=== PATIENT | female | born 1970 | race Caucasian/White ===

== ENCOUNTER 2023-03-27 06:21 | Emergency (ER) | payer BC ==
[~2023-03-27] VITALS: Ht 165.1 cm; Wt 88.7 kg
[2023-03-27 08:09] LABS: BASO # 0.1 10^3/uL (0.0-0.2); BASO % 0.6 % (0.0-1.0); EOS % 0.1 % (0.0-3.0); HEMOGLOBIN 14.3 g/dl (12.0-15.5); LYMPH # 1.3 10^3/uL (1.5-5.0); LYMPH % 12.7 % (24.0-44.0); MEAN CORPUSCULAR HEMOGLOBIN 30.4 pg (27.0-33.0); MEAN CORPUSCULAR HGB CONC 32.5 g/dl (32.0-36.5); MEAN CORPUSCULAR VOLUME 93.4 fl (80.0-96.0); MONO # 0.3 10^3/uL (0.0-0.8); MONO % 3.2 % (2.0-8.0); NEUTROPHILS # 8.3 10^3/uL (1.5-8.5); NEUTROPHILS % 83.2 % (36.0-66.0); PLATELET COUNT, AUTOMATED 321 10^3/uL (150-450); RED BLOOD COUNT 4.71 10^6/uL (4.00-5.40)
[2023-03-27 08:37] LABS: LIPASE 37 U/L (12-53)
[2023-03-27 08:39] LABS: CK-MB VALUE MASS < 1.0 NG/ML (<3.6)
[2023-03-27 08:40] LABS: ALKALINE PHOSPHATASE 82 U/L (46-116); ALT/SGPT 37 U/L (7.0-40); AST/SGOT 17 U/L (<34); BILIRUBIN,DIRECT < 0.1 MG/DL (<0.4); BILIRUBIN,TOTAL 0.2 MG/DL (0.3-1.2); BLOOD UREA NITROGEN 10 MG/DL (9-23); CALCIUM LEVEL 9.6 MG/DL (8.5-10.1); CARBON DIOXIDE LEVEL 24 MMOL/L (20-31); CHLORIDE LEVEL 108 MMOL/L (98-107); CPK CREATINE PHOSPHOKINASE 90 U/L (34-145); CREATININE FOR GFR 0.54 MG/DL (0.55-1.30); GLOMERULAR FILTRATION RATE > 60.0 (>51); GLUCOSE, FASTING 133 MG/DL (60-100); MB/CK RELATIVE INDEX 1.11 (< OR =4); POTASSIUM SERUM 4.2 MMOL/L (3.5-5.1); SODIUM LEVEL 141 MMOL/L (136-145); TOTAL PROTEIN 7.6 G/DL (5.7-8.2)
[2023-03-27] MEDS ORDERED: TRAM50TA2 PO (09:19)
[2023-03-27 09:25] VITALS: BP 198/93; TEMP 98.4; O2SAT 99
== END 2023-03-27 09:30 | disposition home or self-care (01) ==
LOC: M ED 06:21
DX: K80.51 Calculus of bile duct without cholangitis or cholecystitis with obstruction (principal)

== ENCOUNTER 2023-05-24 08:08 | Day surgery (SDC) | payer BC ==
[~2023-05-24] VITALS: Ht 165.1 cm; Wt 86.2 kg
[~2023-05-24 08:08] MED LIST: CALC500C16 PO; CelecoXIB 400 MG CAP PO ONE; DEPO150I IM; INDOCYANINE GREEN 25MG VIAL (IC-GREEN) IV ONE; TRAM50TA2 PO; VITMTA PO; ceFAZolin SOD 2 GM in IV 1 EA IV ONE
[2023-05-24] MEDS ORDERED: LR 1,000 ML IV SCH ×2 (08:35→10:35)
[2023-05-24] MEDS ORDERED: LIDOCAINE 1% SDV 30ML VIAL As Ordered ONE (08:38)
[2023-05-24] MEDS ORDERED: INDOCYANINE GREEN 25MG VIAL (IC-GREEN) As Ordered ONE (08:38)
[2023-05-24] MEDS ORDERED: MIDAZOLAM INJ 2MG/2ML VIAL As Ordered ONE (08:43)
[2023-05-24] MEDS ORDERED: LIDOCAINE 2% 100MG/5ML SDV (FOR ANES.) As Ordered ONE (08:43)
[2023-05-24] MEDS ORDERED: ROCURONIUM BROMIDE 50MG/5ML VIAL As Ordered ONE (08:43)
[2023-05-24] MEDS ORDERED: propofoL 200 MG/20 ML VIAL As Ordered ONE (08:43)
[2023-05-24] MEDS ORDERED: fentaNYL 100 MCG/2 ML INJECTION As Ordered ONE (08:43)
[2023-05-24] MEDS ORDERED: ONDANSETRON 4MG 2ML VIAL As Ordered ONE (08:43)
[2023-05-24] MEDS ORDERED: ACETAMINOPHEN 1000MG 100ML IV BAG As Ordered ONE (09:39)
[2023-05-24] MEDS ORDERED: ESMOLOL INJ 100MG/10ML VIAL As Ordered ONE (10:07)
[2023-05-24] MEDS ORDERED: SUGAMMADEX SODIUM 500 MG/5 ML VIAL (BRIDION) As Ordered ONE (10:31)
[2023-05-24] MEDS ORDERED: KETOROLAC 60MG 2ML VIAL As Ordered ONE (10:31)
[2023-05-24] MEDS ORDERED: HYDROMORPHONE HCL 0.5 MG/ 0.5 ML SYRINGE IV PRN (10:35)
[2023-05-24] MEDS ORDERED: fentaNYL 100 MCG/2 ML INJECTION IV PRN (10:35)
[2023-05-24] MEDS ORDERED: ONDANSETRON 4MG 2ML VIAL IV PRN (10:35)
[2023-05-24] MEDS ORDERED: oxyCODONE 5MG TAB PO PRN (10:35)
[2023-05-24] MEDS ORDERED: NORCO, ANEXSIA 5/325MG TABLET (HYDROcodone/ACETAMINOPHEN) PO PRN ×2 (11:10)
[2023-05-24 12:20] VITALS: BP 150/86; TEMP 97; O2SAT 96
[2023-05-24] MEDS ORDERED: dexmedeTOMIDine (4MCG/ML)200MCG/50ML BTL (PRECEDEX) As Ordered ONE (15:18)
[2023-05-24] MEDS ORDERED: KETOROLAC 30 MG/ML 1ML VIAL IV SCH (17:00)
== END 2023-05-24 12:20 | disposition home or self-care (01) ==
LOC: M SDC 08:08
PROVIDERS: ATTEND Surgery
DX: K80.10 Calculus of gallbladder with chronic cholecystitis without obstruction (principal)
CPT/HCPCS: 47563; 64488; 88304; J0131; J0665; J0690; J1100; J1805; J1885; J2250; J2405; J3010; Q9968; S2900